=== PATIENT | female | born 2005 | race Hispanic/Latino ===

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

== ENCOUNTER 2024-05-21 22:49 | Emergency (ER) | payer OTHER ==
[~2024-05-21] VITALS: Ht 165.1 cm; Wt 61.2 kg
[~2024-05-21 22:49] MED LIST changes: +CEPHALEXIN500 MG PO
[2024-05-21 23:07] VITALS: PULSE 78; RESP 18; TEMP 98.1
[2024-05-21 23:34] VITALS: BP 127/66; PULSE 62; RESP 18; TEMP 98.3; O2SAT 98
== END 2024-05-21 23:36 | disposition home or self-care (01) ==
LOC: FSED 22:58
DX: S51.811A Laceration without foreign body of right forearm, initial encounter (principal); W45.8XXA Other foreign body or object entering through skin, initial encounter; Y92.89 Other specified places as the place of occurrence of the external cause; F98.8 Other specified behavioral and emotional disorders with onset usually occurring in childhood and adolescence; F17.210 Nicotine dependence, cigarettes, uncomplicated
CPT/HCPCS: 99283